=== PATIENT | male | born 1965 | race Caucasian/White ===

== ENCOUNTER 2020-02-07 14:31 | Inpatient (IN) ==
[2020-02-07] MEDS ORDERED: KETOROLAC TROMETHAMINE 60 MG/2 ML VIAL IM STA (14:43)
--- NOTE | 2020-02-07 14:47 | Emergency Department Note ---
Impression & Plan Fracture of right tibia and fibula ED Provider Note NAME: ROMINA [id number] RENEE AGE: 54 SEX: M ARRIVES VIA: Walk-In INFORMANT: Patient, ED PROVIDER(S): Phuc De Paz MD CHIEF COMPLAINT: Right ankle pain PLAN: Disposition: Admit MEDICAL DECISION MAKING: The patient is a 54-year-old gentleman, current inmate at [facility] who present s for right ankle pain and swelling after working with slipped coming off of his top bunk and felt a pop in his right ankle. Denies any prior injury to this ankle. He reports he grazed his head on the lower bunk. He denies any loss of consciousness. Prior to this evening healthy denies fevers chills, cough congestion, nausea vomiting, diarrhea. On arrival he is uncomfortable no acute distress, afebrile stable vital signs. He is mild swelling to the right ankle with tenderness along the medial malleolus deformity of the distal lower leg. Distal PMS is intact. Plain films were performed and demonstrated complex distal fibular and tibial fracture. Case was reviewed with Dr. Mak, [facility] surgery on-call who reviewed patients imaging. Given the patient is an inmate and outpatient follow-up for surgery as additional complications agrees with plan for admission for surgery tomorrow. Agrees with ED attempt at reduction until definitive treatment tomorrow. And was reviewed the patient and he was agreeable with this. Patient was consented for sedation performed by myself and reduction per Dr. Giordano's note. No complications. Postreduction does show some improvement in alignment dose still with lateral displacement. Patient's pain was improved following. Preoperative blood work was unremarkable. WBC 15.2, nonspecific. H/H and platelets within normal limits. Coags within normal limits. Chemistry without acidosis. Electrolytes and LFTs unremarkable. UA negative for infection. Per current policy COVID-19 PCR was ordered and negative. Patient admitted to orthopedics. Triage Nursing notes reviewed and agree them. Prior medical records reviewed Vital Signs: reviewed and remarkable for no significant abnormalities Differential diagnosis: Fracture, subluxation, dislocation, contusion, ligamentous injury, neurovascular, compartment syndrome, rhabdomyolysis, as well as other pat hologies. ER treatment provided: See below. Diagnostics interpreted by me: ECG: Normal sinus rhythm, 91 bpm, no ectopy, nonspecific ST abnormality, no overt ST elevation or depression, QTC 447, QRS 76. Cardiac Monitoring: An order for continuous cardiac monitoring was placed and demonstrated NSR, 91 bpm, no ectopy. Laboratory studies: See below Imaging studies: RIGHT ANKLE 2 VIEWS CLINICAL HISTORY: Fall with right ankle injury. FINDINGS: AP and crosstable lateral views of the right ankle are obtained. No prior studies are available for comparison at the time of dictation. The skeletal structures are well mineralized. There is a comminuted spiral fracture through the distal shaft of the tibia. There is apex volar angulation, with appr oximately 9 mm of lateral distraction of the distal fragment. There is also overriding of the fragments by several millimeters. There is also a mildly displaced and overriding spiral fracture of the lateral malleolus. The tibiotalar articulation appears maintained. There is soft tissue edema is pres ent around the fracture sites. There are dorsal and plantar calcaneal heel spurs. IMPRESSION: Complex and displaced fractures of the distal tibia and fibula as above. - XR tibia fibula RT 2V CLINICAL HISTORY: fall, pain, swelling trauma. Pain. COMPARISON: None. DISCUSSION: Oblique fractures the distal tibia as well as distal fibula. Oblique fracture proximal fibula. Lateral projection shows moderate angulation and bony distraction. Moderate soft tissue edema IMPRESSION: 1. Oblique fractures proximal and distal fibula. 2. Oblique and somewhat angled fracture distal tibial shaft. - XR ankle RT min 3V routine, XR tibia fibula RT 2V CLINICAL HISTORY: post reduction. Right ankle fracture. COMPARISON STUDY: Right ankle 02/07/2020. FINDINGS: Overlying splint obscures fine bony detail. Improved angulation of the distal tibial shaft fracture. However, there is progressive lateral displacement which now measures 1.2 cm. There is also mild overlap, unchanged. There is improved anatomic alignment of the distal fibular fracture which now demonstrates 4 mm of posterior displacement. The ankle mortise appears maintained. There is soft tissue swelling within the distal lower leg/ankle. No change in alignment of the mildly displaced spiral fracture involving the proximal fibular shaft. IMPRESSION: 1. Progressive lateral displacement of the distal tibial shaft fracture. Improved angulation of the distal tibial shaft fracture. 2. The proximal and distal fibular fractures demonstrate slight improved alignment. - XR chest 1V portable HISTORY: preop COMPARISON: None. FINDINGS: The lungs are clear. Cardiac silhouette is normal in size. No pleural effusions. No pneumothorax. IMPRESSION: No acute process. Consultation(s): Dr. Mak, Orthopedic surgery on-call HPI: The patient is a 54-year-old gentleman, current inmate at [facility] who presents for right ankle pain and swelling after working with slipped coming off of his top bunk and felt a pop in his right ankle. Denies any prior injury to this ankle. He reports he grazed his head on the lower bunk. He denies any loss of consciousness. Prior to this evening healthy denies fevers chills, cough congestion, nausea vomiting, diarrhea. ROS: See above HPI for pertinent positives & negatives. A total of 10 systems reviewed and were otherwise negative. PAST MEDICAL HISTORY:See Below PAST SURGICAL HISTORY:See Below FAMILY HISTORY:See Below SOCIAL HISTORY:See Below HOME MEDICATIONS:See Below ALLERGIES:See Below VITALS:See Below PHYSICAL EXAMINATION: GENERAL: Awake, alert, uncomfortable-appearing, in no distress HENT: Normocephalic, atraumatic. Oropharynx unremarkable. EYES: Normal conjunctiva. Sclera non-icteric. NECK: Supple. No nuchal rigidity. FROM. No JVD. RESPIRATORY: Clear to auscultation. CARDIAC: Regular rate, normal rhythm. Extremities warm and well perfused. Pulses equal. ABDOMEN: Soft, non-distended. No tenderness to palpation. No rebound or guarding. No masses. RECTAL: Deferred. MUSCULOSKELETAL: Chest examination reveals no tenderness. The back is symmetrical on inspection without obvious abnormality. There is no CVA tenderness to palpation. LOWER EXTREMITIES: Mild swelling to the right ankle with tenderness along the medial malleolus with deformity of the distal right lower leg. Distal PMS is intact. NEURO: Normal sensorium. No sensory or motor deficits noted. SKIN: No rash or jaundice noted. Phuc De Paz MD Past Med/Surg History Social History Preferred Language: Greek Communication Ability: Effective Decaler Required: No Beliefs That Will Affect Care: None Current Living Situation: Other Current Living Situation Comment: Senior Care Other Information That Helps Us Care for You: No Feels Safe at Home: Yes Smoking Status: Former smoker Tobacco Type: cigarettes ; Do You Dip or Chew Tobacco: No ; Second Hand Exposure: Yes ; Tobacco Cessation Education Requested by Patient: No Hx Alcohol Use: No Hx Substance Use: No Allergies Allergies Allergy/AdvReac Type Severity Reaction Status Date / Time strawberry Allergy Unknown Unknown Verified 02/07/20 16:31 Home Meds Home Medications Medication Instructions Recorded Confirmed No Known Home Medications 02/07/20 02/07/20 Results & Data (ED) Vital Signs Vital Signs - 24 hr 02/07/20 14:32 02/07/20 15:57 02/07/20 17:46 Temperature 37.1 C Temperature Source Oral Pulse Rate 91 H 83 Pulse Rate [Right Finger] 81 Pulse Rate from SpO2 Sensor 85 Respiratory Rate 16 20 17 Respiratory Effort / Characteristics Respiratory Depth Respiratory Pattern Blood Pressure 155/77 H Blood Pressure [Right Arm] 177/99 H Blood Pressure Mean 103 Blood Pressure Mean [Right Arm] 125 Pulse Oximetry 100 99 100 Oxygen Delivery Method Oxygen Flow Rate Sepsis Recent Fever Within 48 Hours No Sepsis New/Unexplained Change in Mental Status N/A Sepsis Action Taken by Nursing No Action Required End-Tidal CO2 End Tidal CO2 (18-54mmHg) 02/07/20 17:50 02/07/20 17:55 02/07/20 18:00 Temperature Temperature Source Pulse Rate 86 84 86 Pulse Rate [Right Finger] Pulse Rate from SpO2 Sensor 86 84 86 Respiratory Rate 25 H 20 Respiratory Effort / Characteristics Respiratory Depth Respiratory Pattern Blood Pressure 182/99 H 180/97 H 184/97 H Blood Pressure [Right Arm] Blood Pressure Mean 126 124 126 Blood Pressure Mean [Right Arm] Pulse Oximetry 100 100 100 Oxygen Delivery Method Nasal Cannula Oxygen Flow Rate 2 Sepsis Recent Fever Within 48 Hours Sepsis New/Unexplained Change in Mental Status Sepsis Action Taken by Nursing End-Tidal CO2 17 26 End Tidal CO2 (18-54mmHg) 02/07/20 18:05 02/07/20 18:09 02/07/20 18:10 Temperature Temperature Source Pulse Rate 84 89 94 H Pulse Rate [Right Finger] Pulse Rate from SpO2 Sensor 87 95 H Respiratory Rate 20 Respiratory Effort / Characteristics Non-Labored Spontaneous Respiratory Depth Normal Respiratory Pattern Regular Blood Pressure 166/95 H 191/97 H Blood Pressure [Right Arm] 166/95 H Blood Pressure Mean 130 114 Blood Pressure Mean [Right Arm] Pulse Oximetry 100 100 100 Oxygen Delivery Method Nasal Cannula Nasal Cannula Nasal Cannula Oxygen Flow Rate 2 2 2 Sepsis Recent Fever Within 48 Hours Sepsis New/Unexplained Change in Mental Status Sepsis Action Taken by Nursing End-Tidal CO2 27 24 End Tidal CO2 (18-54mmHg) 25 02/07/20 18:15 02/07/20 18:20 02/07/20 18:25 Temperature Temperature Source Pulse Rate 88 74 80 Pulse Rate [Right Finger] Pulse Rate from SpO2 Sensor 88 74 82 Respiratory Rate Respiratory Effort / Characteristics Respiratory Depth Respiratory Pattern Blood Pressure 156/83 H 158/93 H 160/91 H Blood Pressure [Right Arm] Blood Pressure Mean 97 104 112 Blood Pressure Mean [Right Arm] Pulse Oximetry 99 99 99 Oxygen Delivery Method Nasal Cannula Nasal Cannula Nasal Cannula Oxygen Flow Rate 2 2 2 Sepsis Recent Fever Within 48 Hours Sepsis New/Unexplained Change in Mental Status Sepsis Action Taken by Nursing End-Tidal CO2 29 30 9 End Tidal CO2 (18-54mmHg) 02/07/20 18:30 02/07/20 18:35 02/07/20 18:40 Temperature Temperature Source Pulse Rate 86 82 86 Pulse Rate [Right Finger] Pulse Rate from SpO2 Sensor 87 82 85 Respiratory Rate 18 Respiratory Effort / Characteristics Respiratory Depth Respiratory Pattern Blood Pressure 167/93 H 151/83 H 167/99 H Blood Pressure [Right Arm] Blood Pressure Mean 115 99 125 Blood Pressure Mean [Right Arm] Pulse Oximetry 100 99 98 Oxygen Delivery Method Nasal Cannula Nasal Cannula Oxygen Flow Rate 2 2 Sepsis Recent Fever Within 48 Hours Sepsis New/Unexplained Change in Mental Status Sepsis Action Taken by Nursing End-Tidal CO2 End Tidal CO2 (18-54mmHg) 02/07/20 18:45 02/07/20 18:50 02/07/20 18:55 Temperature Temperature Source Pulse Rate 90 86 84 Pulse Rate [Right Finger] Pulse Rate from SpO2 Sensor 89 86 83 Respiratory Rate 20 20 18 Respiratory Effort / Characteristics Respiratory Depth Respiratory Pattern Blood Pressure 178/99 H 132/100 179/84 H Blood Pressure [Right Arm] Blood Pressure Mean 139 104 106 Blood Pressure Mean [Right Arm] Pulse Oximetry 98 97 98 Oxygen Delivery Method Oxygen Flow Rate Sepsis Recent Fever Within 48 Hours Sepsis New/Unexplained Change in Mental Status Sepsis Action Taken by Nursing End-Tidal CO2 7 End Tidal CO2 (18-54mmHg) 02/07/20 19:00 02/07/20 19:04 02/07/20 19:15 Temperature Temperature Source Pulse Rate 85 84 85 Pulse Rate [Right Finger] Pulse Rate from SpO2 Sensor 85 86 86 Respiratory Rate Respiratory Effort / Characteristics Respiratory Depth Respiratory Pattern Blood Pressure 168/86 H 171/93 H 167/88 H Blood Pressure [Right Arm] Blood Pressure Mean 105 126 110 Blood Pressure Mean [Right Arm] Pulse Oximetry 98 98 99 Oxygen Delivery Method Room Air Room Air Room Air Oxygen Flow Rate Sepsis Recent Fever Within 48 Hours Sepsis New/Unexplained Change in Mental Status Sepsis Action Taken by Nursing End-Tidal CO2 End Tidal CO2 (18-54mmHg) 02/07/20 19:30 02/07/20 19:45 Temperature Temperature Source Pulse Rate 81 87 Pulse Rate [Right Finger] Pulse Rate from SpO2 Sensor 83 85 Respiratory Rate Respiratory Effort / Characteristics Respiratory Depth Respiratory Pattern Blood Pressure 159/83 H 167/80 H Blood Pressure [Right Arm] Blood Pressure Mean 119 105 Blood Pressure Mean [Right Arm] Pulse Oximetry 98 98 Oxygen Delivery Method Room Air Room Air Oxygen Flow Rate Sepsis Recent Fever Within 48 Hours Sepsis New/Unexplained Change in Mental Status Sepsis Action Taken by Nursing End-Tidal CO2 End Tidal CO2 (18-54mmHg) Laboratory Data Attestation: I reviewed the patient's lab results. Result diagrams: 02/07/20 20:52 02/07/20 20:52 Lab Results 02/07/20 02/07/20 02/07/20 Range/Units 15:55 15:55 15:55 WBC 16.92 H (4.8-10.8) K/uL RBC 5.17 (4.7-6.1) M/uL Hgb 15.1 (14.0-18.0) g/dL Hct 44.4 (42-52) % MCV 85.9 (80-100) fL MCH 29.2 (25-34) pg MCHC 34.0 (32-36) g/dL RDW Std Deviation 44.1 (36.4-46.3) fL RDW Coeff of Beau 14.1 (11.5-14.5) % Plt Count 299 (130-400) K/uL MPV 9.9 (7.4-10.4) fL Immature Gran % (Auto) 0.3 % Neut % (Auto) 89.1 % Lymph % (Auto) 5.7 % Hall % (Auto) 4.6 % Eos % (Auto) 0.1 % Baso % (Auto) 0.2 % Neut # (Auto) 15.07 H (1.4-6.5) K/uL Lymph # (Auto) 0.97 L (1.2-3.4) K/uL Hall # (Auto) 0.78 H (0.11-0.59) K/uL Eos # (Auto) 0.02 (0-0.5) K/uL Baso # (Auto) 0.03 (0-0.2) K/uL Immature Gran # (Auto) 0.05 H (0.00-0.02) K/uL PT 10.3 (9.0-12.0) Seconds INR 1.0 (0.9-1.1) Sodium 138 (136-145) mmol/L Potassium 4.0 (3.5-5.1) mmol/L Chloride 107 (98-107) mmol/L Carbon Dioxide 26 (21-32) mmol/L Anion Gap 5.0 (3-11) BUN 10 (7-18) mg/dl Creatinine 0.93 (0.6-1.4) mg/dl Est Cr Clr Drug Dosing 116.2 ml/min Est GFR ( Amer) 109.0 Est GFR (Non-Af Amer) 94.1 BUN/Creatinine Ratio 10.9 (10-20) Glucose 118 H (70-99) mg/dl Calcium 8.8 (8.5-10.1) mg/dl Total Bilirubin 0.3 (0.2-1) mg/dl AST 17 (15-37) U/L ALT 32 (12-78) U/L Alkaline Phosphatase 86 (45-117) U/L Total Protein 7.2 (6.4-8.2) gm/dl Albumin 3.7 (3.4-5.0) gm/dl Globulin 3.5 (2.5-4.0) gm/dl Albumin/Globulin Ratio 1.1 (0.9-2) COVID-19 PCR (Negative) 02/07/20 Range/Units 19:12 WBC (4.8-10.8) K/uL RBC (4.7-6.1) M/uL Hgb (14.0-18.0) g/dL Hct (42-52) % MCV (80-100) fL MCH (25-34) pg MCHC (32-36) g/dL RDW Std Deviation (36.4-46.3) fL RDW Coeff of Beau (11.5-14.5) % Plt Count (130-400) K/uL MPV (7.4-10.4) fL Immature Gran % (Auto) % Neut % (Auto) % Lymph % (Auto) % Hall % (Auto) % Eos % (Auto) % Baso % (Auto) % Neut # (Auto) (1.4-6.5) K/uL Lymph # (Auto) (1.2-3.4) K/uL Hall # (Auto) (0.11-0.59) K/uL Eos # (Auto) (0-0.5) K/uL Baso # (Auto) (0-0.2) K/uL Immature Gran # (Auto) (0.00-0.02) K/uL PT (9.0-12.0) Seconds INR (0.9-1.1) Sodium (136-145) mmol/L Potassium (3.5-5.1) mmol/L Chloride (98-107) mmol/L Carbon Dioxide (21-32) mmol/L Anion Gap (3-11) BUN (7-18) mg/dl Creatinine (0.6-1.4) mg/dl Est Cr Clr Drug Dosing ml/min Est GFR ( Amer) Est GFR (Non-Af Amer) BUN/Creatinine Ratio (10-20) Glucose (70-99) mg/dl Calcium (8.5-10.1) mg/dl Total Bilirubin (0.2-1) mg/dl AST (15-37) U/L ALT (12-78) U/L Alkaline Phosphatase (45-117) U/L Total Protein (6.4-8.2) gm/dl Albumin (3.4-5.0) gm/dl Globulin (2.5-4.0) gm/dl Albumin/Globulin Ratio (0.9-2) COVID-19 PCR NEGATIVE (Negative) Administered Medications Docusate Sodium (Colace) 100 mg PO BID ALE Stop: 03/08/20 20:59 Last Admin: 02/07/20 21:42 Dose: 100 mg Documented by: [id number] Sodium Chloride (Nss 1000ml) 1,000 mls @ 100 mls/hr IV .Q10H ALE Stop: 03/08/20 20:59 Last Admin: 02/07/20 21:42 Dose: 100 mls/hr Documented by: [id number] Oxycodone/Acetaminophen (Percocet 5mg/325mg) 1 tab PO Q6H PRN PRN Reason: Pain Stop: 02/21/20 20:34 Last Admin: 02/08/20 01:20 Dose: 1 tab Documented by: [id number] Discontinued Medications Sodium Chloride (Nss) 500 mls @ 125 mls/hr IV .Q4H ALE Stop: 03/08/20 15:44 Last Infusion: 02/07/20 22:26 Dose: 0 mls/hr Documented by: [id number] Admin: 02/07/20 18:00 Dose: 125 mls/hr Documented by: [id number] Acetaminophen (Ofirmev) 1,000 mg in 100 mls @ 400 mls/hr IV NOW STA Stop: 02/07/20 15:54 Last Admin: 02/07/20 15:45 Dose: Not Given Documented by: [id number] Acetaminophen (Ofirmev) 1,000 mg in 100 mls @ 400 mls/hr IV NOW STA Stop: 02/07/20 19:36 Last Infusion: 02/07/20 22:27 Dose: 0 mls/hr Documented by: [id number] Admin: 02/07/20 19:56 Dose: 400 mls/hr Documented by: [id number] Ketorolac Tromethamine (Toradol) 60 mg IM NOW STA Stop: 02/07/20 14:44 Last Admin: 02/07/20 15:02 Dose: 60 mg Documented by: [id number] Morphine Sulfate (Morphine Sulfate) 8 mg IV NOW STA Stop: 02/07/20 15:41 Last Admin: 02/07/20 15:45 Dose: Not Given Documented by: [id number] Morphine Sulfate (Morphine Sulfate) 4 mg IV Q1H PRN PRN Reason: Severe Pain (Rating 7,8,9,10) Stop: 02/21/20 19:21 Last Admin: 02/07/20 19:56 Dose: 4 mg Documented by: [id number] Propofol (Diprivan) 100 mg IV NOW STA Stop: 02/07/20 16:52 Last Admin: 02/07/20 18:43 Dose: 160 mg Documented by: [id number] Cosigned by: [id number] Blood Pressure Blood Pressure Findings: Elevated blood pressure Blood Pressure Disposition: elevated BP felt to be situational Discharge Plan Visit Data *Final* Discharge Date/Time: 02/07/20 19:49 Chief Complaint: Ankle Pain Stated Complaint: RIGHT ANKLE INJURY ED Provider: Phuc De Paz Discharge Problem: Fracture of right tibia and fibula Patient Disposition: Admitted As Inpatient Discharge Instructions Interventions: ED Discharge Assessment Last Done: 02/07/20 19:49 Discharge Problem: Fracture of right tibia and fibula Qualifiers: Encounter type: initial encounter Fracture type: closed Qualified Code(s): S82.201A - Unspecified fracture of shaft of right tibia, initial encounter for closed fracture
--- NOTE | 2020-02-07 15:03 | XRay Report ---
XR tibia fibula RT 2V CLINICAL HISTORY: fall, pain, swelling trauma. Pain. COMPARISON: None. DISCUSSION: Oblique fractures the distal tibia as well as distal fibula. Oblique fracture proximal fi bula. Lateral projection shows moderate angulation and bony distraction. Moderate soft tissue edema IMPRESSION: 1. Oblique fractures proximal and distal fibula. 2. Oblique and somewhat angled fracture distal tibial shaft. ACT 112: Negative or not required by law. The above report was generated using voice recognition software. It may contain grammatical, syntax or spelling errors. Electronically signed by: Denny Haines M.D. 02/07/2020 3:02 PM
--- NOTE | 2020-02-07 15:05 | XRay Report ---
RIGHT ANKLE 2 VIEWS CLINICAL HISTORY: Fall with right ankle injury. FINDINGS: AP and crosstable lateral views of the right ankle are obtained. No prior studies are avail able for comparison at the time of dictation. The skeletal structures are well mineralized. There is a comminuted spiral fracture through the distal shaft of the tibia. There is apex volar angulation, w ith approximately 9 mm of lateral distraction of the distal fragment. There is also overriding of the fragments by several millimeters. There is also a mildly displaced and overriding spiral fracture of the lateral malleolus. The tibiotalar articulation appears maintained. There is soft tissue edema is present around the fracture sites. There are dorsal and plantar calcaneal heel spurs. IMPRESSION: Complex and displaced fractures of the distal tibia and fibula as above. Electronically signed by: Rakan Gonzales M.D. 02/07/2020 3:03 PM
[2020-02-07] MEDS ORDERED: ACETAMINOPHEN 1,000 MG/100 ML VIAL IV STA ×2 (15:40→19:22)
[2020-02-07] MEDS ORDERED: MoRPHine SULFATE 10 MG/ML CARP/VIAL IV STA (15:40)
[2020-02-07 16:05] LABS: Basophils # (auto) 0.03 K/uL (0-0.2); Basophils % (auto) 0.2 %; Eosinophils # (auto) 0.02 K/uL (0-0.5); Eosinophils % (auto) 0.1 %; Hematocrit (blood only) 44.4 % (42-52); Hemoglobin 15.1 g/dL (14.0-18.0); Immature Granulocytes # (auto) 0.05 K/uL (0.00-0.02); Immature Granulocytes % (auto) 0.3 %; Lymphocytes # (auto) 0.97 K/uL (1.2-3.4); Lymphocytes % (auto) 5.7 %; Mean Corpuscular Hemoglobin 29.2 pg (25-34); Mean Corpuscular Volume 85.9 fL (80-100); Mean Platelet Volume 9.9 fL (7.4-10.4); Monocytes # (auto) 0.78 K/uL (0.11-0.59); Monocytes % (auto) 4.6 %; Neutrophils # (auto) 15.07 K/uL (1.4-6.5); Neutrophils % (auto) 89.1 %; Platelet Count 299 K/uL (130-400); RDW Coefficient of Variation 14.1 % (11.5-14.5); RDW Standard Deviation 44.1 fL (36.4-46.3); Red Blood Count 5.17 M/uL (4.7-6.1); White Blood Count 16.92 K/uL (4.8-10.8)
[2020-02-07 16:15] LABS: Prothrombin Time 10.3 Seconds (9.0-12.0)
[2020-02-07 16:29] LABS: Albumin Level 3.7 gm/dl (3.4-5.0); BUN Creatinine Ratio 10.9 (10-20); Calcium 8.8 mg/dl (8.5-10.1); Creatinine Clr Calc Pharmacy 116.2 ml/min; Est GFR (Non-African American) 94.1
[2020-02-07 16:32] LABS: Albumin Globulin Ratio 1.1 (0.9-2); Bilirubin,Total 0.3 mg/dl (0.2-1); Globulin 3.5 gm/dl (2.5-4.0); Total Protein 7.2 gm/dl (6.4-8.2)
[2020-02-07] MEDS ORDERED: PROPOFOL IV EMULSION 10 MG/ML 20 ML VIAL IV STA (16:51)
[2020-02-07] MEDS: SODIUM CHLORIDE 0.9% 500 ML IV SCH (18:00)
--- NOTE | 2020-02-07 18:54 | XRay Report ---
XR ankle RT min 3V routine, XR tibia fibula RT 2V CLINICAL HISTORY: post reduction. Right ankle fracture. COMPARISON STUDY: Right ankle 02/07/2020. FINDINGS: Overlying splint obscures fine bony detail. Improved angulation of the distal tibial shaft fracture. However, there is progressive lateral displacement which now measures 1.2 cm. There is also mild overlap, unchanged. There is improved anatomic alignment of the distal fibular fracture which n ow demonstrates 4 mm of posterior displacement. The ankle mortise appears maintained. There is soft t issue swelling within the distal lower leg/ankle. No change in alignment of the mildly displaced spir al fracture involving the proximal fibular shaft. IMPRESSION: 1. Progressive lateral displacement of the distal tibial shaft fracture. Improved angulation of the d istal tibial shaft fracture. 2. The proximal and distal fibular fractures demonstrate slight improved alignment. ACT 112: Negative or not required by law. Electronically signed by: Curtis Beard M.D. 02/07/2020 6:52 PM
--- NOTE | 2020-02-07 19:00 | XRay Report ---
XR chest 1V portable HISTORY: preop COMPARISON: None. FINDINGS: The lungs are clear. Cardiac silhouette is normal in size. No pleural effusions. No pneumot horax. IMPRESSION: No acute process. ACT 112: Negative or not required by law. Electronically signed by: Curtis Beard M.D. 02/07/2020 6:59 PM
[2020-02-07] MEDS ORDERED: MoRPHine SULFATE 4 MG/ML 1 ML CARP\\VIAL IV PRN ×2 (19:22→20:34)
[2020-02-07] MEDS ORDERED: MoRPHine SULFATE 2 MG/ML CARP IV PRN (19:22)
--- NOTE | 2020-02-07 20:01 | Emergency Department Note ---
ED Visit Note Procedure sedation performed for closed reduction of right tibia/fibula fracture. Reduction performed per Dr. Giordano's note. . Pre Sedation Assessment Vital Signs Temp Pulse Pulse Resp BP BP Pulse Ox 02/07/20 19:45 87 167/80 H 98 02/07/20 19:30 81 159/83 H 98 02/07/20 19:15 85 167/88 H 99 02/07/20 19:04 84 171/93 H 98 02/07/20 19:00 85 168/86 H 98 02/07/20 18:55 84 18 179/84 H 98 02/07/20 18:50 86 20 132/100 97 02/07/20 18:45 90 20 178/99 H 98 02/07/20 18:40 86 18 167/99 H 98 02/07/20 18:35 82 151/83 H 99 02/07/20 18:30 86 167/93 H 100 02/07/20 18:25 80 160/91 H 99 02/07/20 18:20 74 158/93 H 99 02/07/20 18:15 88 156/83 H 99 02/07/20 18:10 94 H 191/97 H 100 02/07/20 18:09 89 20 166/95 H 100 02/07/20 18:05 84 166/95 H 100 02/07/20 18:00 86 20 184/97 H 100 02/07/20 17:55 84 180/97 H 100 02/07/20 17:50 86 25 H 182/99 H 100 02/07/20 17:46 83 17 100 02/07/20 15:57 81 20 177/99 H 99 02/07/20 14:32 37.1 C 91 H 16 155/77 H 100 Cardiovascular RRR, no murmur, no edema Respiratory normal respiratory effort, lungs clear to auscultation Pre-Sedation Airway Assessment Smoking Status: Former smoker Hx Sleep Apnea: No Hx Difficult Intubation: No Short, Thick Neck: No Thyromental Distance: > or= 3.5 Finger Breadths Oral Cavity: + Dental Abnormalities (Poor dentition, no loose teeth.) Mallampati Class: I ASA: ASA1 NPO Status Date of Last Intake of Fluids: 02/07/20 Time of Last Intake of Fluids: 11:00 Date of Last Intake of Solid Food: 02/07/20 Time of Last Intake of Solid Foods: 10:30 Procedure Planning Contraindications for Sedation: none Current Medications Reviewed: Yes Notes The planned sedation has been discussed with the patient. Informed Consent was obtained. I have identified the patient, determined the appropriateness of sedation and have assessed the patient immediately prior to the procedure. All medicine(s) and interventions are by my order. Sedation Data Time Out Team Members Agree on the Following: Correct Patient, Correct Procedure, Correct Site-Side and Allergies Verified Sedation Times Sedation Start Date: 02/07/20 Sedation Start Time: 18:11 Sedation End Date: 02/07/20 Sedation End Time: 18:30 Total Sedation Time: 19 Procedure Times Procedure Start Time:: 18:16 Procedure End Time: 18:16 Post Sedation Assessment Vital Signs Temp Pulse Pulse Resp BP BP Pulse Ox 02/07/20 19:45 87 167/80 H 98 02/07/20 19:30 81 159/83 H 98 02/07/20 19:15 85 167/88 H 99 02/07/20 19:04 84 171/93 H 98 02/07/20 19:00 85 168/86 H 98 02/07/20 18:55 84 18 179/84 H 98 02/07/20 18:50 86 20 132/100 97 02/07/20 18:45 90 20 178/99 H 98 02/07/20 18:40 86 18 167/99 H 98 02/07/20 18:35 82 151/83 H 99 02/07/20 18:30 86 167/93 H 100 02/07/20 18:25 80 160/91 H 99 02/07/20 18:20 74 158/93 H 99 02/07/20 18:15 88 156/83 H 99 02/07/20 18:10 94 H 191/97 H 100 02/07/20 18:09 89 20 166/95 H 100 02/07/20 18:05 84 166/95 H 100 02/07/20 18:00 86 20 184/97 H 100 02/07/20 17:55 84 180/97 H 100 02/07/20 17:50 86 25 H 182/99 H 100 02/07/20 17:46 83 17 100 02/07/20 15:57 81 20 177/99 H 99 02/07/20 14:32 37.1 C 91 H 16 155/77 H 100 Recovery Score Activity: Moves 4 extremities Respiration: Deep Breath/Cough Circulation: +/-20% PreAnes Value Consciousness: Fully Awake Oxygen Saturation: > 92% On Room Air Post Anesthesia Score: 10 Discharge Sedation Level of Care: Phase I Unexpected Event: None Post Sedation Plan On clinical assessment, the patient appears to have tolerated the sedation without complications. Patient is recovering as anticipated. Patient will continue to be monitored by nursing and may be discharged when sedation discharge criteria are met per below protocol. Upon Completions of procedure up to 15 minutes continue every 5 minute vital signs and the P.A.R. score; then discharge to a Phase I or Fast Track to Phase II per the following guidelines: * Discharge Patient to appropriate Phase II area if PAR is 8 or greater or return to pre- procedure baseline. The post - procedure orders will be as directed. * If PAR score is less than 8 or not return to pre-procedure baseline then patient will follow Phase I monitoring till PAR is reached for Phase II. The Phase I may be done in procedure room or may call to secure a Phase I area. * If naloxone or flumazenil are used for reversal, hold in Phase I for continued monitoring from when last reversal dose was given for a minimum of 60 minutes or longer pending the nurse and/or physician discretion of patient condition before discharge to Phase II. Please call the Sedation Physician to re-evaluate and complete post-note for discharge to Phase II area. Do NOT discharge from procedure sedation or Phase 1 until post- sedation evaluation note is complete by procedure /sedation MD Sedation Discharge Instructions to be given to the patient at discharge to home.
[2020-02-07 21:21] LABS: Hematocrit (blood only) 43.2 % (42-52); Hemoglobin 14.6 g/dL (14.0-18.0); Mean Corpuscular Hemoglobin 29.1 pg (25-34); Mean Corpuscular Volume 86.1 fL (80-100); Mean Platelet Volume 9.9 fL (7.4-10.4); Platelet Count 309 K/uL (130-400); RDW Coefficient of Variation 14.2 % (11.5-14.5); RDW Standard Deviation 44.1 fL (36.4-46.3); Red Blood Count 5.02 M/uL (4.7-6.1); White Blood Count 15.24 K/uL (4.8-10.8)
[2020-02-07 21:24] LABS: Mean Corpuscular Hgb Conc 33.8 g/dL (32-36)
--- NOTE | 2020-02-07 21:27 | Consultation ---
Date of Consultation February 07, 2020 Assessment & Plan (1) Fracture of right tibia and fibula: Mr. Elizabeth Pinedo is a 54 y/o male with past Medical Hx of prior HTN resolved with smoking cessation, former smoker 1.5 yars ago who presents for surgical risk evaluation and medical management for Complex and displaced fractures of the distal tibia and fibula of right lower extremity. - Patient is low risk for serious (1.7%) or any (2.1%) complication using ACS Risk Calculator. - Not currently requiring any daily medication, former HTN which resolved with smoking cessation. - Lab work with Leukocytosis most likely stress demargination from fracture/injury, no signs of active infection. - Coags WNL, electrolytes WNL. Glucose 118 but wasn't fasting. - CXR performed without acute process. - ECG without abnormalities - BPs elevated here 170s-90s, most likely stress response, will not acutely treat unless symptomatic. FENGI: Regular, NPO for procedure DVT ppx: SCDs Code: Full Code Dispo: Med/surg, currently consulted for surgical risk evaluation and medical management Supervising Physician Co-Signing Physician Notes We will follow along during hospital stayAttending addendum: I have physically seen this patient, have supervised the medical residents activities, and agree with the H&P unless as otherwise noted. Assessment and Plan: Fracture of right tibia and fibula- Admitted to orthopedic service of Dr. Mak. ACS risk calculator gives a low risk for serious complication. Metabolic work- up negative. Chest x-ray negative EKG with no acute findings Elevated blood pressure without diagnosis of hypertension- Likely secondary to stress response/pain. If blood pressure elevation persists, will prescribe PRN medications. Remainder orders notations as noted. We will follow along during hospital stay History of Present Illness Requesting Physician: Dr. Mak Reason for Consultation: Surgical Evaluation/Medical Management Attending Physician: Venkata Mak DO History of Present Illness Elizabeth Pinedo is a 54 y/o male with past medical hx of HTN - treated with stopping smoking, former tobacco use 20 year pack history who quit smoking 1.5 years ago who presents for Consultation for surgical risk evaluation and medical management for Complex and displaced fractures of the distal tibia and fibula of right leg. He is currently incarcerated. He slipped coming off of his top bunk and felt a pop in right ankle when landing. He denied any other injury. He denies numbness in foot. He notes not currently being on any daily medication. He notes prior history of HTN which was treated with medication and resolved once he quit smoking. He notes he quit smoking about 1.5 years ago. He notes approx a 20 pack year history. He notes he is active without experiencing dyspnea on exertion or at rest, no chest pain at rest or with exertion. No prior cardiac disease history. No DM. He notes having anesthesia once before without adverse reaction. He notes currently being comfortable at the moment. Allergies Allergy/AdvReac Type Severity Reaction Status Date / Time strawberry Allergy Unknown Unknown Verified 02/07/20 16:31 Home Medications Home Medications Medication Instructions Recorded Confirmed Type No Known Home Medications 02/07/20 02/07/20 History Patient History Social History Preferred Language: Armenian Communication Ability: Effective Airset Molder Required: No Beliefs That Will Affect Care: None Current Living Situation: Other Current Living Situation Comment: Nursing Home Other Information That Helps Us Care for You: No Feels Safe at Home: Yes Smoking Status: Former smoker Tobacco Type: cigarettes ; Do You Dip or Chew Tobacco: No ; Second Hand Exposure: Yes ; Tobacco Cessation Education Requested by Patient: No Hx Alcohol Use: No Hx Substance Use: No Review of Systems Review of Systems: All systems reviewed & are unremarkable except as noted in HPI & below Constitutional: no fever and no chills Eyes: no diplopia and no spots in vision Ear, Nose, Mouth, Throat: no nasal congestion and no epistaxis Respiratory: no cough and no dyspnea Cardiovascular: no chest pain and no palpitations Gastrointestinal: no abdominal pain, no nausea and no vomiting Genitourinary: no dysuria and no difficulty urinating Musculoskeletal: no back pain and no neck pain Integumentary: no rash and no unusual bruising Neurologic: no numbness and no dizziness Endocrine: no polydipsia, no polyphagia and no polyuria Physical Exam Constitutional: WD/WN, vitals as above Eyes: PERRL, conjunctivae normal, anicteric sclerae ENMT: external ear and nose normal, oropharynx normal Neck: normal visual inspection and trachea midline Respiratory: normal respiratory effort, lungs clear to auscultation Cardiovascular: Rate/Rhythm: regular rate and regular rhythm Gastrointestinal (Abdomen): Inspection/Auscultation: normal bowel sounds Percussion/Palpation: abdomen soft; abdomen nontender, no guarding and abdomen not rigid Musculoskeletal: right leg with wrap in place, NV intact distally Skin: no rashes, warm and dry Neurologic: moves all extremities and awake Psychiatric: A+Ox3, euthymic affect Results & Data ([facility]) Vital Signs (Past 12 Hours) Vital Signs Temp Pulse Pulse Resp BP BP Pulse Ox 02/07/20 20:14 36.5 C 87 17 174/96 H 97 02/07/20 19:45 87 167/80 H 98 02/07/20 19:30 81 159/83 H 98 02/07/20 19:15 85 167/88 H 99 02/07/20 19:04 84 171/93 H 98 02/07/20 19:00 85 168/86 H 98 02/07/20 18:55 84 18 179/84 H 98 02/07/20 18:50 86 20 132/100 97 02/07/20 18:45 90 20 178/99 H 98 02/07/20 18:40 86 18 167/99 H 98 02/07/20 18:35 82 151/83 H 99 02/07/20 18:30 86 167/93 H 100 02/07/20 18:25 80 160/91 H 99 02/07/20 18:20 74 158/93 H 99 02/07/20 18:15 88 156/83 H 99 02/07/20 18:10 94 H 191/97 H 100 02/07/20 18:09 89 20 166/95 H 100 02/07/20 18:05 84 166/95 H 100 02/07/20 18:00 86 20 184/97 H 100 02/07/20 17:55 84 180/97 H 100 02/07/20 17:50 86 25 H 182/99 H 100 02/07/20 17:46 83 17 100 02/07/20 15:57 81 20 177/99 H 99 02/07/20 14:32 37.1 C 91 H 16 155/77 H 100 Laboratory Results Laboratory Results - last 24 hr 02/07/20 02/07/20 02/07/20 15:55 15:55 15:55 WBC 16.92 H RBC 5.17 Hgb 15.1 Hct 44.4 MCV 85.9 MCH 29.2 MCHC 34.0 RDW Std Deviation 44.1 RDW Coeff of Beau 14.1 Plt Count 299 MPV 9.9 Immature Gran % (Auto) 0.3 Neut % (Auto) 89.1 Lymph % (Auto) 5.7 Alexander % (Auto) 4.6 Eos % (Auto) 0.1 Baso % (Auto) 0.2 Neut # (Auto) 15.07 H Lymph # (Auto) 0.97 L Alexander # (Auto) 0.78 H Eos # (Auto) 0.02 Baso # (Auto) 0.03 Immature Gran # (Auto) 0.05 H PT 10.3 INR 1.0 APTT PTT Ratio Sodium 138 Potassium 4.0 Chloride 107 Carbon Dioxide 26 Anion Gap 5.0 BUN 10 Creatinine 0.93 Est Cr Clr Drug Dosing 116.2 Est GFR ( Amer) 109.0 Est GFR (Non-Af Amer) 94.1 BUN/Creatinine Ratio 10.9 Glucose 118 H Calcium 8.8 Total Bilirubin 0.3 AST 17 ALT 32 Alkaline Phosphatase 86 Total Protein 7.2 Albumin 3.7 Globulin 3.5 Albumin/Globulin Ratio 1.1 COVID-19 PCR 02/07/20 02/07/20 02/07/20 19:12 20:52 20:52 WBC Pending RBC Pending Hgb Pending Hct Pending MCV Pending MCH Pending MCHC Pending RDW Std Deviation RDW Coeff of Beau Plt Count Pending MPV Immature Gran % (Auto) Neut % (Auto) Lymph % (Auto) Alexander % (Auto) Eos % (Auto) Baso % (Auto) Neut # (Auto) Lymph # (Auto) Alexander # (Auto) Eos # (Auto) Baso # (Auto) Immature Gran # (Auto) PT Pending INR Pending APTT Pending PTT Ratio Pending Sodium Potassium Chloride Carbon Dioxide Anion Gap BUN Creatinine Est Cr Clr Drug Dosing Est GFR ( Amer) Est GFR (Non-Af Amer) BUN/Creatinine Ratio Glucose Calcium Total Bilirubin AST ALT Alkaline Phosphatase Total Protein Albumin Globulin Albumin/Globulin Ratio COVID-19 PCR NEGATIVE 02/07/20 20:52 WBC RBC Hgb Hct MCV MCH MCHC RDW Std Deviation RDW Coeff of Beau Plt Count MPV Immature Gran % (Auto) Neut % (Auto) Lymph % (Auto) Alexander % (Auto) Eos % (Auto) Baso % (Auto) Neut # (Auto) Lymph # (Auto) Alexander # (Auto) Eos # (Auto) Baso # (Auto) Immature Gran # (Auto) PT INR APTT PTT Ratio Sodium Pending Potassium Pending Chloride Pending Carbon Dioxide Pending Anion Gap Pending BUN Pending Creatinine Pending Est Cr Clr Drug Dosing Pending Est GFR ( Amer) Pending Est GFR (Non-Af Amer) Pending BUN/Creatinine Ratio Pending Glucose Pending Calcium Pending Total Bilirubin AST ALT Alkaline Phosphatase Total Protein Albumin Globulin Albumin/Globulin Ratio COVID-19 PCR Resident Activity Tracking Resident Involvement: Resident Care Provided Care Provided: Adult Hospital Medicine
[2020-02-07 21:29] LABS: BUN Creatinine Ratio 11.4 (10-20); Calcium 8.5 mg/dl (8.5-10.1); Creatinine Clr Calc Pharmacy 124.2 ml/min; Est GFR (Non-African American) 99.2; Potassium 4.2 mmol/L (3.5-5.1)
[2020-02-07 21:32] LABS: Partial Thromboplastin Ratio 0.9; Partial Thromboplastin Time 26.5 Seconds (21.0-31.0); Prothrombin Time 10.3 Seconds (9.0-12.0)
[2020-02-07] MEDS: SODIUM CHLORIDE 0.9% 1000ML 1,000 ML IV SCH (21:42)
[2020-02-07] MEDS: DOCUSATE SODIUM 100 MG CAP PO SCH (21:42)
--- NOTE | 2020-02-07 22:49 | Emergency Department Note ---
ED Visit Note Tib/Fibula Dislocation Reduction Indication: Tibia fracture Verbal consent obtained. Risks and benefits were explained with the usual customary discussion. A time out was taken. Neurovascular examination before the procedure revealed . The tibia fracture dislocation was reduced by placing the patient prone and applying gentle downward inline traction on the foot, with the ankle flexed at 90 degrees, while tibia manipulation was applied. This resulted in better alignment of the fracture. Neurovascular examination after the procedure revealed Pt intact. The patient had significant pain relief and tolerated the procedure well. Splinting Indication: Tib/fib fracture Verbal consent obtained. Risks and benefits were explained with the usual customary discussion. The injured extremity was identified. The patient was prepped and measured for the placement of a ortho-glass splint. Splint applied in the standard fashion over a layer of webril and secured using an elastic bandage. Set into a position of function. Normal neurovascular status after placement verified by me. The patient tolerated the procedure well and the care of the splint was discussed with the patient/family. No complications. .
[2020-02-07 22:53] LABS: Appearance Urine Clear (Clear); Bilirubin Urine Negative (Negative); Blood Urine Negative (Negative); Color Urine Yellow; Glucose Urine UA Negative (Negative); Ketones Urine Negative (Negative); Leukocyte Esterase Urine Negative (Negative); Nitrite Urine Negative (Negative); Protein Urine Negative (Negative); Specific Gravity Urine 1.006 (1.000-1.030); Urobilinogen Urine Negative (Negative); pH Urine 6.5 (4.5-7.5)
[2020-02-08] MEDS: OXYCODONE/ACETAMINOPHEN 5mg/325mg TAB PO PRN ×2 (01:20→07:09)
[2020-02-08] MEDS: SODIUM CHLORIDE 0.9% 1000ML 1,000 ML IV SCH ×3 (06:22→18:45)
[2020-02-08] MEDS: SODIUM CHLORIDE 0.9% 500 ML IV SCH (06:50)
--- NOTE | 2020-02-08 08:11 | Hospitalist Progress Note ---
Date of Service February 08, 2020 Assessment & Plan (1) Fracture of right tibia and fibula: 54 y/o male PMHx prior HTN resolved with smoking cessation, former smoker 1.5 yars ago who presents for surgical risk evaluation and medical management for Complex and displaced fractures of the distal tibia and fibula of right lower extremity. Surgical risk evaluation, leukocytosis: - Patient is low risk for serious (1.7%) or any (2.1%) complication using ACS Risk Calculator. - Not currently requiring any daily medication, former HTN which resolved with smoking cessation. - Lab work with Leukocytosis most likely stress demargination from fracture/injury, no signs of active infection. - Will repeat tomorrow AM. - Coags WNL, electrolytes WNL. Glucose 118 but wasn't fasting. - CXR performed without acute process. - ECG without abnormalities - BPs elevated here 170s-90s, most likely stress response, will not acutely treat unless symptomatic. - Continue to monitor after surgery. FENGI: Regular, NPO for procedure DVT ppx: SCDs Code: Full Code Dispo: Med/surg, currently consulted for surgical risk evaluation and medical management (2) Leukocytosis: Admission and Anticipated Discharge Date Admission Date: February 07, 2020 Supervising Physician Co-Signing Physician Notes I also saw the patient confirmed benites portions of the history and physical examination. I saw the patient late morning he was still awaiting surgery. Lying in bed, he denies pain. Morning blood pressure was 136/85; he had some higher readings overnight which I suspect may have been due to to discomfort. He has a history of hypertension but has been off medications since he stopped smoking. Plan is for surgery later today production associate We will reevaluate in AM, postoperatively if need arises Subjective Patient without acute events overnight. Pain well controlled on PRN pain medications. No fevers or chills. No SOB, chest pain, wheezing, abdominal pain, nausea or vomiting, constipation or diarrhea. No dizziness or headaches. Reports that his fractures occurred "because my leg stayed put while the rest of my body got out of bed". Did not hit his head, did not lose consciousness. Review of Systems Review of Systems: All systems reviewed & are unremarkable except as noted in Subjective Physical Exam Constitutional: WD/WN, vitals as above Eyes: PERRL, conjunctivae normal, anicteric sclerae ENMT: external ear and nose normal, oropharynx normal Neck: normal visual inspection and trachea midline Respiratory: normal respiratory effort, lungs clear to auscultation Cardiovascular: Rate/Rhythm: regular rate and regular rhythm Gastrointestinal (Abdomen): Inspection/Auscultation: normal bowel sounds Percussion/Palpation: abdomen soft; abdomen nontender, no guarding and abdomen not rigid Musculoskeletal: right leg with wrap in place, bilateral DP and PT pulses norm al Skin: no rashes, warm and dry Neurologic: moves all extremities Psychiatric: A+Ox3, euthymic affect Results & Data Results & Data ([facility]) Vital Signs (Past 12 Hours) Vital Signs Temp Pulse Resp BP Pulse Ox 02/08/20 07:23 36.7 C 79 20 136/85 96 02/07/20 23:45 36.8 C 84 18 160/85 H 96 02/07/20 20:14 36.5 C 87 17 174/96 H 97 Resident Activity Tracking Resident Involvement: Resident Care Provided Care Provided: Adult [facility] (1) Fracture of right tibia and fibula Encounter type: initial encounter Fracture type: closed Qualified Code(s): S82.201A - Unspecified fracture of shaft of right tibia, initial encounter for closed fracture; S82.401A - Unspecified fracture of shaft of right fibula, initial encounter for closed fracture
[2020-02-08] MEDS: DOCUSATE SODIUM 100 MG CAP PO SCH ×3 (08:45→20:14)
--- NOTE | 2020-02-08 12:05 | History & Physical Report ---
Date of Service February 08, 2020 Assessment & Plan (1) Fracture of right tibia and fibula: Patient has been NPO so we will plan for ORIF right midshaft tibia fx with tibial nail, possible ORIF lateral malleolus fx, closed tx of the proximal fibula fx. All potential risks, benefits, complications, alternatives, and rehab have been discussed with the patient and he wishes to proceed. He will be scheduled later today, 02.08.2020, with plan for ASA 81 mg BID x 4 wks post op for DVT prophylaxis. Encounter type: initial encounter Fracture type: closed Qualified Code(s): S82.201A - Unspecified fracture of shaft of right tibia, initial encounter for closed fracture; S82.401A - Unspecified fracture of shaft of right fibula, initial encounter for closed fracture History of Present Illness Chief Complaint: Right ankle pain Primary Care Provider: NIKO Nayak This is a patient who was getting down [facility] a top bunk [facility] [employer] yesterday when his right leg slipped and he fell to the ground. He thinks the right leg was caught in the ladder and twisted. He was brought to the ER where a distal 1/3 tibia fx was noted and a proximal and distal fibula fx's were noted. The fx was reduced and splinted. He is now being set up for surgical tx. Allergies Allergy/AdvReac Type Severity Reaction Status Date / Time strawberry Allergy Unknown Unknown Verified 02/07/20 16:31 Home Medications Home Medications Medication Instructions Recorded Confirmed Type No Known Home Medications 02/07/20 02/07/20 History Past Med/Surg History Social History Preferred Language: Thai Communication Ability: Effective Cement Worker Required: No Beliefs That Will Affect Care: None Current Living Situation: Other Current Living Situation Comment: Longterm Other Information That Helps Us Care for You: No Feels Safe at Home: Yes Smoking Status: Former smoker Tobacco Type: cigarettes ; Do You Dip or Chew Tobacco: No ; Second Hand Exposure: Yes ; Tobacco Cessation Education Requested by Patient: No Hx Alcohol Use: No Hx Substance Use: No Physical Exam Constitutional: well developed and well nourished; no acute distress ENMT: external ear and nose normal, oropharynx normal Mouth: + poor dentition Neck: trachea midline, no thyromegaly Respiratory: normal respiratory effort, lungs clear to auscultation Cardiovascular: Rate/Rhythm: regular rate and regular rhythm Gastrointestinal (Abdomen): normal bowel sounds, soft, nontender, no hepatosplenomegaly Musculoskeletal: Ankle: + ecchymosis and + joint line tenderness (ankle) (right ankle tenderness at the tibia and the distal fibula. ); no skin erythema Skin: no rashes, warm and dry Neurologic: normal touch/pain/proprioception (some paresthesias distally RLE to light touch) Psychiatric: A+Ox3, euthymic affect Speech: normal rate/rhythm/volume of speech Lymphatic: no cervical or axillary lymphadenopathy ASA Classification ASA ASA1 Results & Data Vital Signs (Past 12 Hours) Vital Signs Temp Pulse Resp BP Pulse Ox 02/08/20 07:23 36.7 C 79 20 136/85 96 Diagnostic Findings Right tib/fib x-rays reviewed. Distal 1/3 oblique tibia fx, displaced lateral malleolus fx, and mildly displaced proximal fibula fx of the right lower leg. Code Status & VTE Plan VTE Prophylaxis Plan VTE Prophylaxis will be ordered: Yes
[2020-02-08] MEDS ORDERED: PROPOFOL IV EMULSION 10 MG/ML 20 ML VIAL IV ONE (13:04)
[2020-02-08] MEDS ORDERED: LIDOCAINE HCL 2% 2 ML VIAL/AMP(20MG/ML) INFIL ONE (13:04)
[2020-02-08] MEDS ORDERED: MIDAZOLAM HCL 1 MG/ML 2ML VIAL ONE ×2 (13:04)
[2020-02-08] MEDS ORDERED: fentaNYL citrate 100 MCG/2 ML VIAL ONE ×2 (13:04→14:41)
[2020-02-08] MEDS ORDERED: HYDROmorphone INJ 1 MG/ML SYRINGE IV PRN (13:14)
[2020-02-08] MEDS ORDERED: ATROPINE SULFATE 0.1 MG/ML 10ML SYR IV PRN (13:14)
[2020-02-08] MEDS ORDERED: fentaNYL citrate 100 MCG/2 ML VIAL IV PRN (13:14)
[2020-02-08] MEDS ORDERED: ePHEDrine sulfate 50 MG/ML AMP IV PRN (13:14)
[2020-02-08] MEDS ORDERED: ONDANSETRON INJ 2 MG/ML 2 ML VIAL IV PRN ×2 (13:14→17:00)
--- NOTE | 2020-02-08 13:16 | Anesthesiology Consultation ---
Date of Service February 08, 2020 Assessment & Plan Chart Review Chart Review: Acceptable Risk for Surgery and Patient NOT seen in Pre Admission Testing Consults Requested none Covid negative 02/07/2020. History Surgery Operation Date: 02/08/20 07:00 Proposed Procedures p Right Tibial Nail, - Venkata Mak DO s Possible Open Reduction Internal Fixation Lateral Malleolus Fracture - Venkata Mak DO Height/Weight Height: 5 ft 11 in Weight: 108 kg Allergies Allergy/AdvReac Type Severity Reaction Status Date / Time strawberry Allergy Unknown Unknown Verified 02/07/20 16:31 Medications Home Medications Medication Instructions Recorded Confirmed Last Taken No Known Home Medications 02/07/20 02/07/20 Unknown Active Medications Generic Name Dose Route Start Last Admin Trade Name Freq PRN Reason Stop Dose Admin Docusate Sodium 100 mg 02/07/20 21:00 02/08/20 08:45 Colace PO 03/08/20 20:59 100 mg BID ALE Administration Sodium Chloride 1,000 mls @ 100 mls/hr 02/07/20 21:00 02/08/20 13:15 Nss 1000ml IV 03/08/20 20:59 0 mls/hr .Q10H ALE Infusion Oxycodone/Acetaminophen 1 tab 02/07/20 20:35 02/08/20 07:09 Percocet 5mg/325mg PO 02/21/20 20:34 1 tab Q6H PRN Administration Pain NPO Date Last Intake of Fluids: 02/07/20 Time Last Intake of Fluids: 11:00 Date Last Intake of Solids: 02/07/20 Time Last Intake of Solids: 10:30 Past Medical History htn Exercise / Class Metabolic Activity II 4-5 Yardwork/Stairs/Walk up hill Past Surgical History shoulder surgery Past Anesthesia History No Hx of Anesthesia Complications and No Family Hx of Anesthesia Complications History of PONV No Hx of PONV and No Hx of Motion Sickness Social History Smoking Status: Former smoker tobacco type: cigarettes Do You Dip or Chew Tobacco: No Hx Alcohol Use: No alcohol intake frequency: 0-2 drinks per day Hx Substance Use: No substance use type: does not use Physical Exam Vital Signs Last Vital Signs Temp 36.9 C 02/08/20 13:21 Pulse 87 02/08/20 13:21 Resp 20 02/08/20 13:21 BP 165/95 H 02/08/20 13:21 Pulse Ox 97 02/08/20 13:21 Testing Laboratory Results 02/07/20 20:52 02/07/20 20:52 PT 10.3 Seconds (9.0-12.0) 02/07/20 20:52 INR 1.0 (0.9-1.1) 02/07/20 20:52 APTT 26.5 Seconds (21.0-31.0) 02/07/20 20:52 Urine Color Yellow 02/07/20 22:40 Urine Appearance Clear (Clear) 02/07/20 22:40 Urine pH 6.5 (4.5-7.5) 02/07/20 22:40 Ur Specific [place] 1.006 (1.000-1.030) 02/07/20 22:40 Urine Protein Negative (Negative) 02/07/20 22:40 Urine Glucose (UA) Negative (Negative) 02/07/20 22:40 Urine Ketones Negative (Negative) 02/07/20 22:40 Urine Nitrite Negative (Negative) 02/07/20 22:40 Ur Leukocyte Esterase Negative (Negative) 02/07/20 22:40 Electrocardiogram Date: 02/07/20 Findings: + NSR @ (90) Normal sinus rhythm Normal ECG When compared with ECG of 07-FEB-2020 18:42, (unconfirmed) No significant change was found
[2020-02-08] MEDS ORDERED: ROPIVACAINE 0.5% 5 MG/ML 30 ML VIAL ONE (13:20)
[2020-02-08] MEDS ORDERED: BACITRACIN INJ 50,000 UNIT VIAL ONE (13:21)
--- NOTE | 2020-02-08 13:30 | History & Physical Bridge Note ---
Date of Service February 08, 2020 History & Physical Bridge Note I have examined the patient, reviewed the History & Physical and in the interval since the performance of the History & Physical I have noted the following changes of clinical significance: no changes noted
[2020-02-08] MEDS ORDERED: CEFAZOLIN 3000MG 72.5 ML IV ONE (13:53)
[2020-02-08] MEDS ORDERED: CEFAZOLIN 3000MG/72.5 ML BAG IV ONE (13:55)
[2020-02-08] MEDS ORDERED: ROCURONIUM BROMIDE 10 MG/ML 5 ML VIAL IV ONE (14:57)
[2020-02-08] MEDS ORDERED: ONDANSETRON INJ 2 MG/ML 2 ML VIAL ONE (14:57)
[2020-02-08] MEDS ORDERED: GLYCOPYRROLATE 0.2 MG/ML VIAL ONE (14:57)
[2020-02-08] MEDS ORDERED: DEXAMETHASONE SOD INJ 4 MG/ML VIAL ONE (14:57)
[2020-02-08] MEDS ORDERED: NEOSTIGMINE METHYLSULFATE 5 MG/5 ML SYR ONE (14:58)
--- NOTE | 2020-02-08 15:56 | Fluoroscopy Report ---
FL tibia/fibula RT 2V CLINICAL HISTORY: RT ORIF TIBIAL NAIL/POSS ORIF LAT MAL FX COMPARISON STUDY: 02/07/2020 FLUOROSCOPY TIME: 2 minutes 40 seconds NUMBER OF FLUOROSCOPIC IMAGES: 5 FINDINGS: Image intensifier was utilized for jay jay placement throughout the bulk of the length of the t ibia. IMPRESSION: Image intensifier utilization for tibial nailing procedure ACT 112: Negative or not required by law. The above report was generated using voice recognition software. It may contain grammatical, syntax or spelling errors. Electronically signed by: Denny Haines M.D. 02/08/2020 3:55 PM
--- NOTE | 2020-02-08 15:58 | Post Operative Brief Note ---
Immediate Post Op Note v1 Date of Surgery February 08, 2020 Pre & Post Diagnosis Operation Date: 02/08/20 07:00 Pre-Op Diagnosis: Displaced fracture of right distal one third tibia and segmental fibula fracture Post-Op Diagnosis: Displaced fracture of right distal one third tibia and segmental fibula fracture I identified the patient and participated in the time-out.: Yes Procedure Operation Date: 02/08/20 07:00 Actual Procedures p ORIF Right displaced distal one third tibial fracture with Synthes 9 mm x 360 mm titanium nail and locking screws x4, Closed Treatment Segmental Fibula Fracture with application splint (Right) - Venkata Mak DO Surgeon Venkata Mak DO Door Repairer Bus Juice Garcia PA-C Estimated Blood Loss 10 Findings Consistent with Post-Op Diagnosis Specimens None Anesthesia Type General Regional Complications none Disposition Accompanied Patient To Recovery: No Disposition: Recovery Room
--- NOTE | 2020-02-08 16:58 | Anesthesiology Progress Note ---
Date of Service February 08, 2020 Anesthesia Post Procedure Vital Signs Vital Signs: Temp Pulse Pulse Pulse Resp BP BP 02/08/20 16:45 36.5 C 82 11 L 149/92 H 02/08/20 16:35 89 13 154/83 H 02/08/20 16:25 78 16 151/80 H 02/08/20 16:15 87 15 152/79 H 02/08/20 16:08 36.4 C L 99 H 19 137/87 02/08/20 13:21 36.9 C 87 20 165/95 H 02/08/20 07:23 36.7 C 79 20 136/85 02/07/20 23:45 36.8 C 84 18 160/85 H 02/07/20 20:14 36.5 C 87 17 174/96 H 02/07/20 19:45 87 167/80 H 02/07/20 19:30 81 159/83 H 02/07/20 19:15 85 167/88 H 02/07/20 19:04 84 171/93 H 02/07/20 19:00 85 168/86 H 02/07/20 18:55 84 18 179/84 H 02/07/20 18:50 86 20 132/100 02/07/20 18:45 90 20 178/99 H 02/07/20 18:40 86 18 167/99 H 02/07/20 18:35 82 151/83 H 02/07/20 18:30 86 167/93 H 02/07/20 18:25 80 160/91 H 02/07/20 18:20 74 158/93 H 02/07/20 18:15 88 156/83 H 02/07/20 18:10 94 H 191/97 H 02/07/20 18:09 89 20 166/95 H 02/07/20 18:05 84 166/95 H 02/07/20 18:00 86 20 184/97 H 02/07/20 17:55 84 180/97 H 02/07/20 17:50 86 25 H 182/99 H 02/07/20 17:46 83 17 Pulse Ox 02/08/20 16:45 97 02/08/20 16:35 97 02/08/20 16:25 96 02/08/20 16:15 94 02/08/20 16:08 92 02/08/20 13:21 97 07/15/20 07:23 96 02/07/20 23:45 96 02/07/20 20:14 97 02/07/20 19:45 98 02/07/20 19:30 98 02/07/20 19:15 99 02/07/20 19:04 98 02/07/20 19:00 98 02/07/20 18:55 98 02/07/20 18:50 97 02/07/20 18:45 98 02/07/20 18:40 98 02/07/20 18:35 99 02/07/20 18:30 100 02/07/20 18:25 99 02/07/20 18:20 99 02/07/20 18:15 99 02/07/20 18:10 100 02/07/20 18:09 100 02/07/20 18:05 100 02/07/20 18:00 100 02/07/20 17:55 100 02/07/20 17:50 100 02/07/20 17:46 100 Pain Intensity Right Lower Leg: Pain Intensity: 0 Transfer of Care Handoff Completed per policy Notes Mental Status: alert / awake / arousable and participated in evaluation Patient Amnestic to Procedure: Yes Nausea / Vomiting: adequately controlled Pain: adequately controlled Airway Patency, RR, SpO2: stable & adequate BP & HR: stable & adequate Hydration State: stable & adequate Anesthetic Complications: no major complications apparent and Pt Satisfied with anesthetic care
[2020-02-08] MEDS ORDERED: bisacodyL 10 MG SUPP PR PRN (17:00)
[2020-02-08] MEDS ORDERED: NO NSAIDS SCH (17:00)
[2020-02-08] MEDS ORDERED: MAGNESIUM HYDROXIDE SUSP 30 ML UDC PO PRN (17:00)
[2020-02-08] MEDS ORDERED: ALUMINUM/MAGNESIUM SUSP 30 ML UDC PO PRN (17:00)
[2020-02-08] MEDS ORDERED: METOCLOPRAMIDE HCL INJ 5 MG/ML 2 ML VIAL IV PRN (17:00)
[2020-02-08] MEDS ORDERED: NALOXONE HCL 0.4 MG/1 ML VIAL/CARP IV PRN (17:00)
[2020-02-08] MEDS ORDERED: TAMSULOSIN HCL 0.4 MG CAP PO PRN (17:00)
--- NOTE | 2020-02-08 19:13 | Electrocardiogram Report ---
Test Reason : Blood Pressure : / mmHG Vent. Rate : 091 BPM Atrial Rate : 091 BPM P-R Int : 124 ms QRS Dur : 076 ms QT Int : 364 ms P-R-T Axes : 057 -19 034 degrees QTc Int : 447 ms Normal sinus rhythm Nonspecific ST abnormality Abnormal ECG No previous ECGs available Confirmed by Kevin Sheehan ([id number]) on 02/08/2020 7:12:59 PM Referred By: REFERRED SELF Confirmed By:Fei Sheehan
--- NOTE | 2020-02-08 19:15 | Electrocardiogram Report ---
Test Reason : Blood Pressure : / mmHG Vent. Rate : 090 BPM Atrial Rate : 090 BPM P-R Int : 124 ms QRS Dur : 076 ms QT Int : 364 ms P-R-T Axes : 052 -27 017 degrees QTc Int : 445 ms Poor data quality, interpretation may be adversely affected Normal sinus rhythm Normal ECG When compared with ECG of 07-FEB-2020 18:42, (unconfirmed) No significant change was found Confirmed by Kevin Sheehan ([id number]) on 02/08/2020 7:14:40 PM Referred By: REFERRED SELF Confirmed By:Fei Sheehan
[2020-02-08] MEDS: SENNA 8.6 MG TAB PO SCH (20:14)
[2020-02-08] MEDS: ASPIRIN 81 MG ECTAB PO SCH (20:14)
[2020-02-08] MEDS: CEFAZOLIN 2000MG 2,000 MG/15 ML SYR IV SCH (21:47)
[2020-02-08] MEDS: ACETAMINOPHEN 500 MG TAB PO SCH (21:47)
--- NOTE | 2020-02-08 22:36 | Billing Data ---
Date of Service February 08, 2020 Coding Level of Care Code 87276 Inpt Consult Level 3
--- NOTE | 2020-02-09 00:35 | Operative Report (OR) ---
DATE OF OPERATION: 02/08/2020 INMATE NUMBER: [id number]. PREOPERATIVE DIAGNOSES: 1. Right displaced distal one-third tibial fracture, closed. 2. Segmental fibula fracture. POSTOPERATIVE DIAGNOSES: 1. Right displaced distal one-third tibial fracture, closed. 2. Segmental fibula fracture. PROCEDURES: 1. Right open reduction internal fixation, displaced distal one-third tibial fracture with Synthes 9 x 360 mm titanium nail. 2. Closed treatment of segmental fibula fracture with application of splint. SURGEON: Venkata Mak DO. FIRE SUPPORT MAN: Juice Garcia PA-C, who was present for patient positioning, sterile prep and drape, management of retractors and instruments. He was present through the critical portions of the case including wound closure, application of sterile dressing and transport of the patient to recovery. ANESTHESIA: General, regional. SPECIMENS: None. DRAINS: None. COMPLICATIONS: None. BLOOD LOSS: 10 mL. PERTINENT HISTORY: This is a 54-year-old assisted inmate who apparently was in his top bunk, fell, and he got his right leg caught in the rungs of the bunk. He had obvious deformity, immediate pain, and inability to ambulate. He was transported to [facility] where he was evaluated and noted to have a closed displaced and angulated distal tibial fracture with a segmental fibula fracture. The patient was then placed in a splint and then admitted to the hospital and then scheduled for surgery as indicated. All potential risks, benefits, complications, alternatives, rehab, potential for incomplete relief of symptoms, need for further surgery, DVT, PE, , persistent pain, swelling, scarring, weakness, neurovascular injury, wound complications, hardware failure, nonunion, malunion, bone fracture were discussed with the patient. The patient decided to proceed with the procedure as indicated. DESCRIPTION OF PROCEDURE: The patient was taken to the operative suite, placed supine on the operating room table. After review of the consent and identification of proper operative site, the patient was anesthetized, LMA was placed. The patient had previously received regional anesthesia performed by the anesthesiologist in the preoperative holding area. Next, tourniquet was applied high on the right thigh over cast padding. Right lower extremity was then sterilely prepped and draped in the usual fashion, elevated and exsanguinated with an Esmarch bandage. Tourniquet inflated to 350 mmHg. Next, 15-blade scalpel was used to make an incision in the anterior aspect of the right knee centered over the medial border of the patellar tendon. The incision was deepened through subcutaneous tissue. Meticulous hemostasis was achieved with electrocautery. Full thickness skin flaps were developed. The paratenon was then incised in line with the skin incision with 15-blade scalpel. A Weitlaner retractor was placed in the incision and an arthrotomy was created with a 15-blade scalpel down to the proximal aspect of the anterior tibia. At this point, under live fluoroscopic assistance, guide pin was placed in the anterior proximal tibia and then a bone piercing awl was then used to break the cortex at the proximal tibia and then a ball tip guide jay jay was passed from the proximal tibia crossing the fracture under live fluoroscopic assistance into the distal fragment of the tibial fracture under live fluoroscopic assistance, placed into the center-center position of the tibial plafond in the intramedullary side. Once guidewire placement was confirmed, sequential reaming was performed beginning at size 8 mm up to a size 10.5 mm under live fluoroscopic assistance. Once this was completed, a 9 x 360 mm titanium Synthes nail was then passed over the ball tip guide jay jay crossing the fracture to stabilize it. Next, using the proximal locking jig, two small stab incisions were made along the proximal medial aspect of the tibia with a 15-blade scalpel followed by careful dissection with hemostats down to the level of the bone. Next, 2 locking screws were placed under live fluoroscopic assistance proximally. Next, the anterior locking jig and the insertion handle was then removed proximally and then a 5 mm end cap was then applied after copious irrigation with sterile normal saline until clear. Once this was completed, next the limb was aligned distally. Back slapping was performed of the heel in a firm but gentle fashion to compress the fracture along the course of the tibial nail. Next, using radiographic alignment, two distal locking screws were placed from medial to lateral using 2 small stab incisions made with a 15-blade scalpel using free hand technique. Two transverse locking screws were placed from medial to lateral. Position of the locking screws was confirmed with live fluoroscopic assistance as well as confirmation of anatomic reduction and fixation of the tibial fracture as well as placement of the nail proximally. Next, all incisions were copiously irrigated with sterile normal saline followed by closure of the stab incisions for the locking screws with interrupted 4-0 nylon sutures followed by irrigation once again of the arthrotomy site with copious amounts of sterile normal saline with bacitracin. Next, the arthrotomy was closed using #1 Vicryl to the medial border of the patellar tendon followed by closure of the paratenon with 3-0 Vicryl. The dermis was closed using buried interrupted 2-0 Vicryl and the skin was then closed using skin rikki. Next, a decision was made for closed treatment of the segmental fibula fracture as it had aligned into near anatomic reduction after placement of the tibial nail. Next, a sterile compressive dressing and well-padded posterior splint was applied overwrapped with an Tomas wrap. The tourniquet was released. The patient was awakened and taken to recovery room in stable condition. I attest to the content of the Intraoperative Record and any orders documented therein. Any exception s are noted below.
[2020-02-09] MEDS: SODIUM CHLORIDE 0.9% 1000ML 1,000 ML IV SCH ×2 (04:21→04:22)
[2020-02-09] MEDS: ACETAMINOPHEN 500 MG TAB PO SCH ×3 (06:03→20:51)
[2020-02-09] MEDS: CEFAZOLIN 2000MG 2,000 MG/15 ML SYR IV SCH (06:03)
[2020-02-09 07:29] LABS: Basophils # (auto) 0.01 K/uL (0-0.2); Basophils % (auto) 0.1 %; Hematocrit (blood only) 40.8 % (42-52); Hemoglobin 13.5 g/dL (14.0-18.0); Immature Granulocytes # (auto) 0.04 K/uL (0.00-0.02); Immature Granulocytes % (auto) 0.3 %; Lymphocytes # (auto) 0.97 K/uL (1.2-3.4); Lymphocytes % (auto) 6.5 %; Mean Corpuscular Hemoglobin 28.8 pg (25-34); Mean Corpuscular Hgb Conc 33.1 g/dL (32-36); Mean Platelet Volume 10.2 fL (7.4-10.4); Monocytes # (auto) 1.06 K/uL (0.11-0.59); Monocytes % (auto) 7.1 %; Neutrophils # (auto) 12.78 K/uL (1.4-6.5); Platelet Count 269 K/uL (130-400); RDW Coefficient of Variation 14.4 % (11.5-14.5); RDW Standard Deviation 45.9 fL (36.4-46.3); Red Blood Count 4.69 M/uL (4.7-6.1); White Blood Count 14.86 K/uL (4.8-10.8)
[2020-02-09 07:50] LABS: BUN Creatinine Ratio 14.5 (10-20); Calcium 8.2 mg/dl (8.5-10.1); Creatinine Clr Calc Pharmacy 133.4 ml/min; Est GFR (African American) 118.4; Est GFR (Non-African American) 102.2; Potassium 4.4 mmol/L (3.5-5.1)
--- NOTE | 2020-02-09 08:20 | Orthopedic Progress Note ---
Date of Service February 09, 2020 Assessment & Plan (1) Fracture of right tibia and fibula: POD #1 s/p 1. Right open reduction internal fixation, displaced distal one-third tibial fracture with Synthes 9 x 360 mm titanium nail. 2. Closed treatment of segmental fibula fracture with application of splint Keep splint intact. NWB RLE at all times PT/OT DVT prophylaxis--TEDs, ASA 81 mg BID D/C planning--when pain is controlled, will d/c back to [facility], possibly later today vs. tomorrow. Admission and Anticipated Discharge Date Admission Date: February 07, 2020 Supervising Physician Co-Signing Physician Notes Patient seen and examined. Agree with AMANDA Garcia's note above. Patient has mobilized in room with Therapy, not yet in fern[facility]dez. Remains NWB RLE. Pain controlled; reports nerve block is just starting to wear off, just now starting to get return of motor and sensory function. Plan to observe overnight after nerve block wears off to ensure pain controlled prior to discharge back to assisted, likely tomorrow. Subjective Right lower leg pain is controlled at this time. Feels the nerve block is still working but is wearing off. Has been NWB RLE. Denies CP, SOB, LH. Physical Exam Constitutional: well developed and well nourished; no acute distress ENMT: external ear and nose normal, oropharynx normal Mouth: + poor dentition Neck: trachea midline, no thyromegaly Respiratory: normal respiratory effort, lungs clear to auscultation Cardiovascular: Rate/Rhythm: regular rate and regular rhythm Gastrointestinal (Abdomen): normal bowel sounds, soft, nontender, no hepatosplenomegaly Musculoskeletal: Ankle: + surgical incision (Right lower leg: Splint C/D/I. ); no skin erythema and no ecchymosis Skin: no rashes, warm and dry Neurologic: normal touch/pain/proprioception (Toes are mobile. Sensation intact to light touch.) Psychiatric: A+Ox3, euthymic affect Speech: normal rate/rhythm/volume of speech Lymphatic: no cervical or axillary lymphadenopathy Results & Data ([facility]) Vital Signs (Past 12 Hours) Vital Signs Temp Pulse Resp BP BP Pulse Ox 02/09/20 07:39 37 C 76 18 109/69 94 02/09/20 04:10 36.6 C 82 18 127/74 91 02/08/20 23:15 37.3 C 84 20 109/63 95 (1) Fracture of right tibia and fibula Encounter type: initial encounter Fracture type: closed Qualified Code(s): S82.201A - Unspecified fracture of shaft of right tibia, initial encounter for closed fracture; S82.401A - Unspecified fracture of shaft of right fibula, initial encounter for closed fracture
--- NOTE | 2020-02-09 08:36 | Anesthesiology Progress Note ---
Date of Service February 09, 2020 Anesthesia Post Procedure Vital Signs Vital Signs: Temp Pulse Pulse Pulse Resp BP BP 02/09/20 07:39 37 C 76 18 109/69 02/09/20 04:10 36.6 C 82 18 127/74 02/08/20 23:15 37.3 C 84 20 109/63 02/08/20 19:53 36.9 C 92 H 20 127/69 02/08/20 19:15 36.8 C 94 H 18 124/75 02/08/20 18:00 36.4 C L 91 H 16 138/82 02/08/20 17:30 36.6 C 99 H 16 132/80 02/08/20 17:00 36.9 C 76 16 144/82 H 02/08/20 16:45 36.5 C 82 11 L 149/92 H 02/08/20 16:35 89 13 154/83 H 02/08/20 16:25 78 16 151/80 H 02/08/20 16:15 87 15 152/79 H 02/08/20 16:08 36.4 C L 99 H 19 137/87 02/08/20 13:21 36.9 C 87 20 165/95 H Pulse Ox 02/09/20 07:39 94 02/09/20 04:10 91 02/08/20 23:15 95 02/08/20 19:53 98 02/08/20 19:15 97 02/08/20 18:00 99 02/08/20 17:30 99 02/08/20 17:00 98 02/08/20 16:45 97 02/08/20 16:35 97 02/08/20 16:25 96 02/08/20 16:15 94 02/08/20 16:08 92 02/08/20 13:21 97 Pain Intensity Right Lower Leg: Pain Intensity: 0 Notes Mental Status: alert / awake / arousable Patient Amnestic to Procedure: Yes Nausea / Vomiting: adequately controlled Pain: adequately controlled Airway Patency, RR, SpO2: stable & adequate BP & HR: stable & adequate Hydration State: stable & adequate Anesthetic Complications: no major complications apparent and Pt Satisfied with anesthetic care
[2020-02-09] MEDS: MULTIVITAMIN TAB PO SCH (08:53)
[2020-02-09] MEDS: DOCUSATE SODIUM 100 MG CAP PO SCH ×3 (08:53→20:51)
[2020-02-09] MEDS: ASPIRIN 81 MG ECTAB PO SCH ×2 (08:53→20:51)
--- NOTE | 2020-02-09 10:42 | Hospitalist Progress Note ---
Date of Service February 09, 2020 Assessment & Plan (1) Fracture of right tibia and fibula: 54 y/o male PMHx prior HTN resolved with smoking cessation, former smoker 1.5 yars ago who presents for surgical risk evaluation and medical management for Complex and displaced fractures of the distal tibia and fibula of right lower extremity. POD #1 s/p ORIF R distal tibial fracture, splinting of fibula fracture. Luekocytosis, transient HTN: - Patient was low risk for serious (1.7%) or any (2.1%) complication using ACS Risk Calculator and is POD#1 s/p ORIF surgery. - Not currently requiring any daily medication, former HTN which resolved with smoking cessation. - Patient normotensive since surgery yesterday. - Lab work with Leukocytosis most likely stress demargination from fracture/injury, no signs of active infection. - Trend is 16.92 -> 15.24 -> 14.86. - Coags WNL, electrolytes WNL. Glucose 118 but wasn't fasting. - CXR performed without acute process. - ECG without abnormalities. - BPs elevated initially on admission 170s-90s, most likely stress response, did not require treatment. - Normotensive today, no need for HTN management at this time. Distal tibial and fibular fractures s/p ORIF and splinting: - Care per Orthopedic team. - For likely discharge tomorrow. FENGI: Regular DVT ppx: SCDs Code: Full Code Dispo: Med/Surg Hospitalist service will sign off at this time, thank you for the consult. (2) Leukocytosis: Admission and Anticipated Discharge Date Admission Date: February 07, 2020 Supervising Physician Co-Signing Physician Notes I also saw the patient and confirmed benites portions of the history of his examination. I agree with the documentation as noted in the resident documentation. Postop day #1 Blood pressures are well controlled Mild and improving leukocytosis, likely reactive. No evidence of infection. Plan per orthopedics is discharge likely tomorrow; medicine will sign off. Subjective Patient without acute events and vitals stable overnight. Admits to some pain in the RLE otherwise no fevers or chills, no shortness of breath or chest pain, no nausea or vomiting, no constipation or diarrhea, dizziness or headaches. Reports he will be discharged tomorrow. Walked with PT this morning which "went well but now my leg hurts some". Review of Systems Review of Systems: All systems reviewed & are unremarkable except as noted in Subjective Physical Exam Constitutional: WD/WN, vitals as above Eyes: PERRL, conjunctivae normal, anicteric sclerae ENMT: external ear and nose normal, oropharynx normal Neck: normal visual inspection and trachea midline Respiratory: normal respiratory effort, lungs clear to auscultation Cardiovascular: Rate/Rhythm: regular rate and regular rhythm Gastrointestinal (Abdomen): Inspection/Auscultation: normal bowel sounds Percussion/Palpation: abdomen soft; abdomen nontender, no guarding and abdomen not rigid Musculoskeletal: right leg with wrap in place, bilateral DP and PT pulses normal Skin: no rashes, warm and dry Neurologic: moves all extremities Psychiatric: A+Ox3, euthymic affect Results & Data Results & Data ([facility]) Vital Signs (Past 12 Hours) Vital Signs Temp Pulse Resp BP BP Pulse Ox 02/09/20 07:39 37 C 76 18 109/69 94 02/09/20 04:10 36.6 C 82 18 127/74 91 02/08/20 23:15 37.3 C 84 20 109/63 95 Resident Activity Tracking Resident Involvement: Resident Care Provided Care Provided: Adult Hospital Medicine (1) Fracture of right tibia and fibula Encounter type: initial encounter Fracture type: closed Qualified Code(s): S82.201A - Unspecified fracture of shaft of right tibia, initial encounter for closed fracture; S82.401A - Unspecified fracture of shaft of right fibula, initial encounter for closed fracture
[2020-02-09] MEDS: OXYCODONE HCL IR 5 MG TAB (IMMEDIATE RELEASE) PO PRN ×2 (15:40→20:50)
[2020-02-09] MEDS: SENNA 8.6 MG TAB PO SCH (20:51)
[2020-02-09] MEDS: HYDROmorphone INJ 0.5 MG/0.5 ML SYR IV PRN (22:01)
[2020-02-10] MEDS: OXYCODONE HCL IR 5 MG TAB (IMMEDIATE RELEASE) PO PRN ×2 (01:39→08:35)
[2020-02-10] MEDS: HYDROmorphone INJ 0.5 MG/0.5 ML SYR IV PRN (04:56)
[2020-02-10] MEDS: ACETAMINOPHEN 500 MG TAB PO SCH ×2 (06:02→13:51)
[2020-02-10] MEDS: ASPIRIN 81 MG ECTAB PO SCH (08:36)
[2020-02-10] MEDS: MULTIVITAMIN TAB PO SCH (08:37)
[2020-02-10] MEDS: DOCUSATE SODIUM 100 MG CAP PO SCH (08:37)
--- NOTE | 2020-02-10 08:51 | Orthopedic Progress Note ---
Date of Service February 10, 2020 Assessment & Plan (1) Fracture of right tibia and fibula: POD #2 s/p 1. Right open reduction internal fixation, displaced distal one-third tibial fracture with Synthes 9 x 360 mm titanium nail. 2. Closed treatment of segmental fibula fracture with application of splint Keep splint intact. NWB RLE at all times PT/OT - working with crutches today DVT prophylaxis--TEDs, ASA 81 mg BID D/C planning--when pain is controlled, will d/c back to [facility] today after PT Admission and Anticipated Discharge Date Admission Date: February 07, 2020 Subjective POD 2 Pt sitting up in bed eating breakfast. Was having some pain during the night but pain control is better this AM. No new complaints. Physical Exam Physical Exam: Splint/Dressing intact. Toes pink/warm. Cap refill < 2 seconds. Moving toes well. Some swelling noted. Still having some mild tingling sensation in the toes. Results & Data ([facility]) Vital Signs (Past 12 Hours) Vital Signs Temp Pulse Resp BP BP Pulse Ox 02/10/20 08:14 36.8 C 76 16 114/71 90 02/09/20 23:15 36.9 C 70 20 115/71 92 (1) Fracture of right tibia and fibula Encounter type: initial encounter Fracture type: closed Qualified Code(s): S82.201A - Unspecified fracture of shaft of right tibia, initial encounter for closed fracture; S82.401A - Unspecified fracture of shaft of right fibula, initial encounter for closed fracture
--- NOTE | 2020-02-15 16:37 | Discharge Summary ---
Date of Service February 15, 2020 Admission HPI Per Admitting Provider This is a patient who was getting down from a top bunk at [facility] yesterday when his right leg slipped and he fell to the ground. He thinks the right leg was caught in the ladder and twisted. He was brought to the ER where a distal 1/3 tibia fx was noted and a proximal and distal fibula fx's were noted. The fx was reduced and splinted. He is now being set up for surgical tx. Principal Diagnosis right tibia and fibula fractures Discharge Exam Constitutional well developed and well nourished; no acute distress ENMT external ear and nose normal, oropharynx normal Mouth: + poor dentition Neck trachea midline, no thyromegaly Respiratory normal respiratory effort, lungs clear to auscultation Cardiovascular Rate/Rhythm: regular rate and regular rhythm Gastrointestinal (Abdomen) normal bowel sounds, soft, nontender, no hepatosplenomegaly Musculoskeletal Ankle: + surgical incision (Right lower leg: Splint C/D/I. ); no skin erythema and no ecchymosis Skin no rashes, warm and dry Neurologic normal touch/pain/proprioception (Toes are mobile. Sensation intact to light touch.) Psychiatric A+Ox3, euthymic affect Speech: normal rate/rhythm/volume of speech Lymphatic no cervical or axillary lymphadenopathy Discharge Data Allergies Allergy/AdvReac Type Severity Reaction Status Date / Time strawberry Allergy Unknown Unknown Verified 02/07/20 16:31 Consultations 02/07/20 18:33 ED Decision to Admit Stat 02/07/20 20:25 Consult Hospitalist Routine Procedures Performed Operation Date: 02/08/20 07:00 Actual Procedures p ORIF Right Tibial Nail, Closed Treatment Segmental Fibula Fracture(Right) - Venkata Mak DO Ordered Studies 02/08/20 13:14 US - OR guided needle placemen Routine 02/08/20 14:00 FL fluoroscopy <1hr Routine FL tibia/fibula RT 2V Routine Hospital Course (1) Fracture of right tibia and fibula: This is a patient who was admitted on 02.07.2020 after a fall in his cell at [facility]. He was admitted to [facility] later that day after a midshaft tibia fx and proximal and distal fibula fx's were seen. He underwent the noted procedure on 02.08.2020. He was kept NWB on the RLE and kept at [facility] for pain control and PT. On POD #2, he was doing well, his pain was controlled, and he was discharged back to [facility] after a sign out call was made to the medical [facility] at the jail. POD #2 s/p 1. Right open reduction internal fixation, displaced distal one- third tibial fracture with Synthes 9 x 360 mm titanium nail. 2. Closed treatment of segmental fibula fracture with application of splint Keep splint intact. NWB RLE at all times PT/OT - working with crutches today DVT prophylaxis--TEDs, ASA 81 mg BID D/C planning--when pain is controlled, will d/c back to [facility] today after PT Total Time Total Time Spent Total Time Spent (In Minutes): 60 Total Time Includes: Examination of the Patient, Discharge Planning, Medication Reconciliation and Communication With Other Providers Discharge Plan Discharge Items [facility] Disposition[facility] Reason For Visit: TIB,FIX FX Discharge Diagnosis: right tibia and fibula fractures Activity: Per Instructions section Weightbearing: Right non-weightbearing Non-emergency contact: Surgeon Call non-emergency contact if: your pain is not controlled, your pain is worsening and your temperature is above 101 Follow-up/Referrals: Malini POPE [Primary Care Provider] - Diet: Regular Addtl Attending Provider Instructions: ACTIVITY RECOMMENDATIONS: Limitations: No weight bearing to affected limb at all times. SPECIAL CARE INSTRUCTIONS: * Some drainage onto the dressing is normal and is no cause for alarm. * Some swelling is natural especially after walking. * When resting, keep your foot elevated above the level of your heart. * Call [facility] if you notice: -Increased drainage -Fever over 101 degrees F -Severe constant pain BANDAGE: * Leave bandage/cast in place unless otherwise directed. * Keep bandage/cast dry at all times. FOLLOW UP VISIT WITH DR. MAK If appointment is not already scheduled: Please call [facility] after you get home today to schedule a follow-up appointment for [address] Mak at . Pending Studies at Discharge: No Stand-Alone Forms: My [facility] [employer] Skilled Items Patient informed of condition?: Yes Discharge Level of Care: Other Communicable Disease: No Discharge Prognosis: Stable Lines: None Urinary Catheter: No Medications and DC Order Prescriptions: New aspirin 81 mg Tablet,Delayed Release (Dr/Ec) 81 mg PO BID 30 Days Qty: 60 RF: 0 acetaminophen 500 mg Tablet 1,000 mg PO Q8 14 Days Qty: 84 RF: 0 oxycodone 5 mg Tablet 5 mg PO Q4H MDD 6 tabs PRN (Reason: pain) Qty: 18 RF: 0 No Action No Known Home Medications RF: 0 Discharge Orders: Discharge Order (Routine); Ordered 02/10/20 Ordered By: Ezio Floyd Admission Data Admit Date/Time: 02/07/20 20:07 Attending Provider: Venkata Mak Admit Provider: Venkata Mak Primary Care Provider: Malini POPE Other Providers: Venkata Mak ; Hayden Diallo Other Interventions: Discharge Summary Assessment (RN) Last Done: 02/10/20 13:19 DC Date/Time DO NOT enter until pt leaves facility: 02/10/20 15:47
== END 2020-02-10 15:47 | DRG 494 ==
LOC: ED 14:31 → 3N 19:49